=== PATIENT | female | born 1955 | race African-American/Black ===

== ENCOUNTER 2023-08-18 19:47 | Emergency (ER) | payer OTHER ==
[~2023-08-18] VITALS: Ht 162.6 cm; Wt 69.0 kg
[2023-08-18 19:54] VITALS: O2SAT 99
[2023-08-18 20:55] LABS: BASOPHILS % 0.8 % (0.0-2.0); EOSINOPHILS % 2.4 % (0.0-5.0); HEMATOCRIT. 40.4 % (36.0-48.0); HEMOGLOBIN. 13.1 g/dL (12.0-16.0); LYMPHOCYTES % 29.1 % (20.0-50.0); MEAN CORPUSCULAR HEMOGLOBIN 27.6 pg (28.0-32.0); MEAN CORPUSCULAR HGB CONC 32.5 g/dL (31.0-37.0); MEAN CORPUSCULAR VOLUME 85.1 fL (81.0-99.0); MEAN PLATELET VOLUME 9.4 fl (7.4-10.4); MONOCYTES % 10.5 % (2.0-8.0); NEUTROPHILS % 57.2 % (40.0-76.0); PLATELET 156 x1000/uL (130-400); RED BLOOD CELL COUNT 4.75 mill/uL (4.2-5.4); RED CELL DISTRIBUTION WIDTH 15.2 % (11.6-14.6); WHITE BLOOD COUNT 5.7 x1000/uL (4.5-11.0)
[2023-08-18 21:05] LABS: CHLORIDE 106 mEq/L (98-107); POTASSIUM 3.1 mEq/L (3.5-5.1); SODIUM 140 mEq/L (136-145)
[2023-08-18 21:06] LABS: CALCIUM 9.3 mg/dL (8.7-10.4); CARBON DIOXIDE 27 mEq/L (21-32)
[2023-08-18 21:11] LABS: CREATININE 0.9 mg/dL (0.6-1.0); GLUCOSE 95 mg/dL (70-105); UREA NITROGEN BLOOD 14 mg/dL (9-23)
[2023-08-18 21:13] LABS: TROPONIN I HIGH SENSITIVITY 8 ng/L (3.0-34)
[2023-08-18] MEDS: POTASSIUM CHLORIDE 20MEQ/PACKET PO ONE (21:21)
[2023-08-18] MEDS ORDERED: POTA-205 MT (21:33)
[2023-08-18 21:43] VITALS: BP 156/88; PULSE 67; RESP 19; TEMP 98.3
== END 2023-08-18 21:47 | disposition home or self-care (01) ==
LOC: ER 19:47
DX: R55 Syncope and collapse (principal); E78.00 Pure hypercholesterolemia, unspecified; I10 Essential (primary) hypertension; I25.2 Old myocardial infarction
CPT/HCPCS: 36415; 71045; 80048; 83880; 84484; 85025; 93005; 99285